=== PATIENT | male | born 1970 | race Caucasian/White ===

== ENCOUNTER 2017-09-28 10:35 | Emergency (ER) | payer MEDICAID, OTHER ==
--- NOTE | 2017-09-28 12:46 | UC ---
Abdominal Pain Male HPI - HPI Summary HPI Summary: 46 yo male with the onset of suprapubic abd pain with increased frequency of urination/urgency of urination has moderate suprapubic pain one episode of diarrhea no f/c hx appy hx diverticulitis - History of Current Complaint Chief Complaint: UCGU Stated Complaint: FREQUENT URINATION Time Seen by Provider: 09/28/17 12:22 Hx Obtained From: Patient Onset/Duration: Gradual Onset, Lasting Hours Timing: Constant Severity Initially: Moderate Severity Currently: Moderate Pain Intensity: 6 Pain Scale Used: 0-10 Numeric Location: Suprapubic Radiates to: Back Character: Aching, Colicy Aggravating Factor(s): Nothing Alleviating Factor(s): Nothing Associated Signs And Symptoms: Positive: Urinary Symptoms, Decreased Appetite, Nausea, Diarrhea - Allergies/Home Medications Allergies/Adverse Reactions: Allergies Allergy/AdvReac Type Severity Reaction Status Date / Time Naproxen [From Aleve] Allergy Intermediate Hives Verified 09/28/17 11:21 PMH/Surg Hx/FS Hx/Imm Hx Previously Healthy: Yes GI/ History: Diverticulitis - Surgical History Surgical History: Yes Surgery Procedure, Year, and Place: Appendix - Family History Known Family History: Positive: Hypertension, Other - cataracts/no FHx of kidney stones - Social History Alcohol Use: Weekly Alcohol Amount: 3-4 BEERS/WEEK Substance Use Type: None Smoking Status (MU): Current Some Day Smoker - Immunization History Most Recent Influenza Vaccination: season Review of Systems Constitutional: Negative Skin: Negative Eyes: Negative ENT: Negative Respiratory: Negative Cardiovascular: Negative Gastrointestinal: Abdominal Pain, Diarrhea, Nausea Genitourinary: Frequency, Urgency Motor: Negative Neurovascular: Negative Musculoskeletal: Negative Neurological: Negative Psychological: Negative Is Patient Immunocompromised?: No All Other Systems Reviewed And Are Negative: Yes Physical Exam Triage Information Reviewed: Yes Appearance: Well-Appearing, No Pain Distress, Well-Nourished Vital Signs: Initial Vital Signs Temp 99.5 F 09/28/17 11:22 Pulse 88 09/28/17 11:22 Resp 18 09/28/17 11:22 BP 129/80 09/28/17 11:22 Pulse Ox 97 09/28/17 11:22 Vital Signs Reviewed: Yes Eyes: Positive: Conjunctiva Clear ENT: Positive: Hearing grossly normal, Uvula midline. Negative: Nasal congestion, Nasal drainage, Trismus, Muffled voice, Hoarse voice, Sinus tenderness Neck: Positive: Supple, Nontender, No Lymphadenopathy Respiratory: Positive: Lungs clear, Normal breath sounds, No respiratory distress, No accessory muscle use Cardiovascular: Positive: RRR, No Murmur Abdomen Description: Positive: No Organomegaly, Soft, Other: - diffusely tender/ worse suprapubically. Negative: Nontender, Bruit, CVA Tenderness (R), CVA Tenderness (L), Distended, Guarding Bowel Sounds: Positive: Present Musculoskeletal: Positive: ROM Intact, No Edema Neurological: Positive: Alert Psychological Exam: Normal Skin Exam: Normal Diagnostics - Radiology No standard instances Xray Interpretation: Positive (See Comments) - CT OF ABD/PELVIS : The constellation of findings is most consistent with acute diverticulitis of the sigmoid colon. Negative for perienteric abscess or resulting bowel obstruction Radiology Interpretation Completed By: Radiologist Abd Pain Male Course/Dx - Differential Dx/Clinical Impression Provider Diagnoses: acute diverticulitis Discharge - Discharge Plan Condition: Stable Disposition: HOME Patient Education Materials: Diverticulitis (ED), Diverticulitis Diet (ED) Forms: *Work Release Referrals: Andree Mariscal MD [Primary Care Provider] - 3 Days Additional Instructions: rest fluids diet as tolerated if symptoms worsen you need to go to the ER (increased pain/vomiting/high fever) you need to get rechecked in a few days if you fail out patient therapy you will required hospitalization tylenol
--- NOTE | 2017-09-28 13:04 | RAD ---
INDICATION: Abdominal pain. Microscopic hematuria. COMPARISON: May 25, 2015 CT. TECHNIQUE: Multidetector CT images were obtained from the lung bases to the ischial tuberosities. Evaluation of the viscera is limited without IV contrast. Multiplanar reformation. REPORT: Unremarkable visualized inferior thorax. Diffuse decreased density of the liver consistent with fatty infiltration with focal sparing at the gallbladder fossa. Upper normal size liver. No CT abnormality of the gallbladder. Negative for biliary dilatation. Negative for CT abnormality of the pancreas or spleen. No CT abnormality of the upper GI, small bowel, or diminutive medially extending appendix. Moderate colonic diverticulosis primarily at the sigmoid colon. At the mid sigmoid colon associated with an inflamed appearing LEFT lateral directed diverticulum there is mild perienteric inflammatory stranding and trace free fluid along the LEFT pelvic sidewall. No extra enteric gas or perienteric abscess evident. Negative for significant hernias. Normal adrenal glands. Negative for urolithiasis or hydronephrosis. The nondilated LEFT ureter courses through the region of inflammatory change along the LEFT pelvic sidewall. Unremarkable urinary bladder. Grossly symmetric seminal vesicles. Negative for lymphadenopathy. Minimal calcific plaque of normal diameter abdominal aorta and iliac arteries. Physiologic distention of the IVC. Negative for suspicious osseous lesions. IMPRESSION: 1. The constellation of findings is most consistent with acute diverticulitis of the sigmoid colon. Negative for perienteric abscess or resulting bowel obstruction. 2. Negative for urolithiasis or hydronephrosis. 3. Fatty infiltration of the liver.
[2017-09-28] MEDS ORDERED: Sulfamethox/Trimethoprim DS 800/160* TAB PO ONE (13:16)
[2017-09-28] MEDS ORDERED: metroNIDAZOLE TAB* 250 MG PO ONE (13:16)
[2017-09-28 13:32] VITALS: BP 132/85
== END 2017-09-28 13:34 | disposition home or self-care (01) ==
LOC: UCEAST 10:35
DX: K57.92 Diverticulitis of intestine, part unspecified, without perforation or abscess without bleeding (principal); Z72.0 Tobacco use; Z77.22 Contact with and (suspected) exposure to environmental tobacco smoke (acute) (chronic)
CPT/HCPCS: 74176; 87086; 99211; A9270-GY; G0463